=== PATIENT | female | born 2005 | race African-American/Black ===

== ENCOUNTER 2025-04-12 02:32 | Emergency (ER) | payer OTHER ==
[~2025-04-12] VITALS: Ht 149.9 cm; Wt 54.4 kg
[2025-04-12] MEDS ORDERED: IBUPROFEN 600 MG TABLET ONE (03:29)
[2025-04-12] MEDS: IBUPROFEN 600 MG TABLET PO ONE (03:30)
[2025-04-12 04:05] LABS: APPEARANCE,URINE CLEAR (CLEAR); BILIRUBIN,URINE NEGATIVE (NEGATIVE); BLOOD, URINE 1+ Ery/uL (NEGATIVE); COLOR,URINE YELLOW (YELLOW); KETONES,URINE NEGATIVE (NEGATIVE); LEUKOCYTE ESTERASE ,URINE NEGATIVE (NEGATIVE); NITRITE, URINE NEGATIVE (NEGATIVE); PH,URINE 8.5 (5.0-8.0); PROTEIN,URINE 1+ mg/dl (NEGATIVE); UGLUCOSE NEGATIVE (NEGATIVE)
[2025-04-12 04:13] LABS: PREGNANCY TEST URINE QUAL NEGATIVE (NEGATIVE)
[2025-04-12 04:29] LABS: BACTERIA,URINE Many /HPF (None Seen)
[2025-04-12 04:30] LABS: ADD URINE CULTURE YES; SQUAMOUS EPITHELIAL CELL,UR Few /HPF (None Seen)
[2025-04-12] MEDS ORDERED: NITR100C6 PO (04:49)
[2025-04-12 04:54] VITALS: BP 114/69; TEMP 98.3; O2SAT 100
== END 2025-04-12 04:54 | disposition home or self-care (01) ==
LOC: ER 02:48
DX: N39.0 Urinary tract infection, site not specified (principal); M54.50 Low back pain, unspecified
CPT/HCPCS: 81001; 84703-TC; 87086-TC